=== PATIENT | female | born 1980 | race Caucasian/White ===

== ENCOUNTER 2018-02-08 16:02 | Observation (INO) | payer MEDICARE, OTHER ==
[~2018-02-08 16:02] MED LIST: LEVOTAB PO; LORA1CHW2 CHEW; MULT-120 PO; WALKER WHEELS/F1 MIS; [UNRECOGNIZED DRUG - CODE] EACH EYE
[2018-02-08 16:29] VITALS: BP 158/73; PULSE 128; RESP 24; TEMP 98.6; O2SAT 97
--- NOTE | 2018-02-08 17:19 | RADRPT ---
EXAM DATE/TIME: 02/08/2018 16:52 [place] COMPARISON: No previous studies available for comparison. INDICATIONS : Cough and fever. MEDICAL HISTORY : Cerebral palsy. SURGICAL HISTORY : None. ENCOUNTER: Initial ACUITY: 1 day PAIN SCORE: Non-responsive. LOCATION: Bilateral chest FINDINGS: Hyperinflation. Clear lungs. Heart size normal. Osseous structures are intact. CONCLUSION: Hyperinflation. Afshin Lawrence MD on February 08, 2018 at 17:17 Board Certified Radiologist. This report was verified electronically.
[2018-02-08 17:42] LABS: AUTOMATED NEUTROPHIL # 16.8 TH/MM3 (1.8-7.7); BASOPHIL % 0.1 % (0.0-2.0); HEMOGLOBIN 12.1 GM/DL (11.6-15.3); LYMPH % 6.8 % (9.0-44.0); LYMPHOCYTE # 1.3 TH/MM3 (1.0-4.8); MEAN CORPUSCULAR HEMOGLOBIN 29.8 PG (27.0-34.0); MEAN CORPUSCULAR HGB CONC 33.5 % (32.0-36.0); MONO % 5.9 % (0.0-8.0); MONOCYTE # 1.1 TH/MM3 (0-0.9); NEUT % 87.2 % (16.0-70.0); PLATELET COUNT 246 TH/MM3 (150-450); RED BLOOD COUNT 4.04 MIL/MM3 (4.00-5.30); RED CELL DISTRIBUTION WIDTH 13.6 % (11.6-17.2); WHITE BLOOD COUNT 19.2 TH/MM3 (4.0-11.0)
[2018-02-08 17:48] LABS: INTERNATIONAL NORMALIZED RATIO 1.1 RATIO; PROTHROMBIN TIME - PATIENT 11.4 SEC (9.8-11.6)
[2018-02-08 17:54] LABS: ALBUMIN 3.9 GM/DL (3.4-5.0); ALT (GPT) 32 U/L (10-53); AST (GOT) 30 U/L (15-37); BICARBONATE 25.2 MEQ/L (21.0-32.0); BLOOD UREA NITROGEN 16 MG/DL (7-18); CALCIUM 8.4 MG/DL (8.5-10.1); CHLORIDE 104 MEQ/L (98-107); CREATININE 0.77 MG/DL (0.50-1.00); GLOMERULAR FILTRATION RATE 83 ML/MIN (>89); GLUCOSE,RANDOM 109 MG/DL (74-106); SODIUM (NA) 137 MEQ/L (136-145)
[2018-02-08 17:56] LABS: ALKALINE PHOSPHATASE 84 U/L (45-117); TOTAL BILIRUBIN ADULT 0.6 MG/DL (0.2-1.0)
[2018-02-08] MEDS ORDERED: cefTRIAXone INJ 1,000 MG in SODIUM CHLORIDE 0.9% INJ 100 ML IV ONE (18:00)
[2018-02-08] MEDS ORDERED: SODIUM CHLOR 0.9% 1000 ML INJ 1,000 ML IV ONE (18:00)
--- NOTE | 2018-02-08 18:00 | PD ---
HPI Chief Complaint: Fever Time Seen by Provider: 17:43 Travel History International Travel<30 days: No Contact w/Intl Traveler<30days: No Traveled to known affect area: No History of Present Illness HPI 37-year-old female with history of cerebral palsy here with her father for evaluation of fever. Apparently the patient started with a fever about a week ago which seemed to resolve, then returned yesterday. She was checked for strep pharyngitis yesterday by her primary care physician and it was negative. That has been administering Tylenol and ibuprofen. Patient is not acting as her usual self and is refusing to eat or drink. She has not vomited. She is unable to provide history. PFSH Past Medical History Cerebral Palsy: Yes Diminished Hearing: No Musculoskeletal: Yes (cerebral palsey) Neurologic: Yes (NON-VERBAL) Integumentary: Yes (MRSA) Seizures: Yes ?: Not Menopausal: Yes Past Surgical History Eye Surgery: Yes (BILATERAL A CHILD) Other Surgery: Yes (MOLE REMOVED) Social History Alcohol Use: No Tobacco Use: No Substance Use: No Allergies-Medications (Allergen,Severity, Reaction): Coded Allergies: vancomycin (Unverified Allergy, Severe, EDEMA OF FACE AND EXTREMITY AND TONGUE, 07/14/17) Reported Meds & Prescriptions Reported Meds & Active Scripts Active Walker with Front Wheels (Device) 1 Mis Mis 1 Ea .ROUTE DIRECTED Levocetirizine 5 Mg Tab 5 Mg PO DAILY Bepreve Opth Drops (Bepotastine Opth Drops) 1.5% Drops 1 Drop EACH EYE BID Claritin (Loratadine) 5 Mg Chew 5 Mg CHEW DAILY Reported Multivitamin Women (Multiple Vitamins W/ Minerals) 1 Tab Tab 1 Tab PO DAILY Review of Systems Except as stated in HPI: all other systems reviewed are Neg Physical Exam Narrative GENERAL: Well-developed, thin, female SKIN: Focused skin assessment warm/dry. No petechiae. HEAD: Atraumatic. Normocephalic. EYES: Pupils equal and round. No scleral icterus. No injection or drainage. ENT: Mucous membranes pink and dry. Bilateral tympanic membranes and external auditory canals are normal. NECK: Trachea midline. No JVD. No nuchal rigidity. CARDIOVASCULAR: Regular rate and rhythm. No murmur appreciated. RESPIRATORY: No accessory muscle use. Clear to auscultation. Breath sounds equal bilaterally. GASTROINTESTINAL: Abdomen soft, non-tender, nondistended. MUSCULOSKELETAL: Upper and lower extremity contractures. No clubbing. No cyanosis. No edema. NEUROLOGICAL: Awake and alert. Data Data Last Documented VS Vital Signs Date Time Temp Pulse Resp B/P (MAP) Pulse Ox O2 Delivery O2 Flow Rate FiO2 02/08/18 17:46 22 Room Air 02/08/18 16:29 98.6 128 158/73 (101) 97 Orders Orders Complete Blood Count With Diff (02/08/18 16:32) Comprehensive Metabolic Panel (02/08/18 16:32) Prothrombin Time / Inr (Pt) (02/08/18 16:32) Act Partial Throm Time (Ptt) (02/08/18 16:32) Chest, Pa & Lat (02/08/18 ) Influenzae A/B Antigen (02/08/18 16:32) Urinalysis - C+S If Indicated (02/08/18 17:43) Cath For Specimen (02/08/18 17:43) Sodium Chlor 0.9% 1000 Ml Inj (Ns 1000 M (02/08/18 18:00) Ceftriaxone Inj (Rocephin Inj) (02/08/18 18:00) Blood Culture (02/08/18 18:01) Lactic Acid (02/08/18 18:01) Lorazepam Inj (Ativan Inj) (02/08/18 18:30) Labs Laboratory Tests Test 02/08/18 16:19 02/08/18 17:20 02/08/18 18:19 Urine Color YELLOW Urine Turbidity CLEAR Urine pH 6.0 Urine Specific [place] 1.037 Urine Protein 30 mg/dL Urine Glucose (UA) NEG mg/dL Urine Ketones 80 mg/dL Urine Occult Blood SMALL Urine Nitrite NEG Urine Bilirubin NEG Urine Urobilinogen 2.0 MG/DL Urine Leukocyte Esterase NEG Urine RBC 8 /hpf Urine WBC LESS THAN 1 /hpf Urine Hyaline Casts 3 /lpf Urine Granular Casts 3 /lpf Urine Mucus FEW /lpf Microscopic Urinalysis Comment CATH-CULT NOT IND White Blood Count 19.2 TH/MM3 Red Blood Count 4.04 MIL/MM3 Hemoglobin 12.1 GM/DL Hematocrit 36.0 % Mean Corpuscular Volume 89.0 FL Mean Corpuscular Hemoglobin 29.8 PG Mean Corpuscular Hemoglobin Concent 33.5 % Red Cell Distribution Width 13.6 % Platelet Count 246 TH/MM3 Mean Platelet Volume 9.0 FL Neutrophils (%) (Auto) 87.2 % Lymphocytes (%) (Auto) 6.8 % Monocytes (%) (Auto) 5.9 % Eosinophils (%) (Auto) 0.0 % Basophils (%) (Auto) 0.1 % Neutrophils # (Auto) 16.8 TH/MM3 Lymphocytes # (Auto) 1.3 TH/MM3 Monocytes # (Auto) 1.1 TH/MM3 Eosinophils # (Auto) 0.0 TH/MM3 Basophils # (Auto) 0.0 TH/MM3 CBC Comment DIFF FINAL Differential Comment Prothrombin Time 11.4 SEC Prothromb Time International Ratio 1.1 RATIO Activated Partial Thromboplast Time 26.5 SEC Blood Urea Nitrogen 16 MG/DL Creatinine 0.77 MG/DL Random Glucose 109 MG/DL Total Protein 8.0 GM/DL Albumin 3.9 GM/DL Calcium Level 8.4 MG/DL Alkaline Phosphatase 84 U/L Aspartate Amino Transf (AST/SGOT) 30 U/L Alanine Aminotransferase (ALT/SGPT) 32 U/L Total Bilirubin 0.6 MG/DL Sodium Level 137 MEQ/L Potassium Level 3.9 MEQ/L Chloride Level 104 MEQ/L Carbon Dioxide Level 25.2 MEQ/L Anion Gap 8 MEQ/L Estimat Glomerular Filtration Rate 83 ML/MIN Lactic Acid Level 1.1 mmol/L MDM Medical Decision Making Medical Screen Exam Complete: Yes Emergency Medical Condition: Yes Differential Diagnosis Febrile illness, sepsis, influenza, viral illness, pneumonia, UTI, acute intra- abdominal process Narrative Course Initial vital signs show heart rate 120, blood pressure 150/73, pulse ox 97% on room air, tympanic temp of 98.6F. The patient was given 1 g of IV Rocephin empirically. CBC: WBC 19.2, hemoglobin 12.1, hematocrit 36, platelets 246, neutrophils 87%. CMP is unremarkable. Lactic acid is 1.1. UA shows 80 ketones, not suggestive of UTI. Influenza is negative. Chest x-ray: Hyperinflation. Clear lungs. The patient likely has a viral URI. Case discussed with medical residents and they will admit the patient to their service under Dr. Troncoso for febrile illness with unknown source. Diagnosis Primary Impression: Fever, unknown origin Admitting Information Admitting Physician Requests: Guillremo Davies MD Feb 08, 2018 18:00
[2018-02-08] MEDS ORDERED: LORazepam 2 MG/ML VIAL IV PUSH ONE (18:30)
[2018-02-08 19:09] LABS: BLOOD, URINE SMALL (NEG); GLUCOSE,URINE NEG (NEG); HYALINE CAST, URINE 3 /lpf (RARE); KETONE, URINE 80 mg/dL (NEG); MUCUS URINE FEW /lpf (OCC); NITRITE,URINE NEG (NEG); URINE COLOR YELLOW (YELLW/STRAW); URINE LEUKOCYTE ESTERASE NEG (NEG)
[2018-02-08 19:13] LABS: BILIRUBIN, URINE NEG (NEG)
[2018-02-08] MEDS ORDERED: SODIUM CHLORIDE 0.9% FLUSH 10 ML FLUSH IV FLUSH PRN (19:30)
[2018-02-08] MEDS ORDERED: SENNOSIDES 8.6 MG TAB PO PRN (19:30)
[2018-02-08] MEDS ORDERED: ACETAMINOPHEN 325 MG TAB PO PRN (19:30)
[2018-02-08] MEDS ORDERED: NALOXONE HCL 0.4 MG/ML AMP IV PUSH PRN (19:30)
[2018-02-08] MEDS ORDERED: BISACODYL 10 MG SUPP RECTAL PRN (19:30)
[2018-02-08] MEDS ORDERED: MAGNESIUM HYDROXIDE SUSP 30 ML CUP PO PRN (19:30)
[2018-02-08] MEDS ORDERED: LACTULOSE SYRUP 20 GM/30 ML CUP PO PRN (19:30)
--- NOTE | 2018-02-08 19:39 | HHI.HP ---
[facility] Service [facility] Medicine Primary Care Physician Ciaran Rendon MD Admission Diagnosis Fever of unknown origin Diagnoses: International Travel<30 Days: No Contact w/Intl Traveler<30days: No Known Affected Area: No History of Present Illness Patient is a 37-year-old female with history significant for cerebral palsy and intellectual disability. Presented here today with her father that reports that he is the decision-maker. Patient is nonverbal. About 1 week ago patient was noticed to have a decrease in appetite and had a temperature of 100.0. The following day patient continued to have a decrease in appetite as well as decreased energy but with a fever to a high of 103. Was treated with Tylenol which improved the fever. She also developed a dry cough at that time. Symptoms continue to be present and was seen in the same day clinic at the [facility] and was diagnosed with viral illness. Rapid strep at that time was negative. Over the weekend patient's appetite had improved as well as her energy level but then yesterday her fever returned. This morning she then developed a recurrence of decreasing energy as well as fever. Cough has continued throughout this time. Father denies any other associated symptoms except for a more prominent urine smell. Sick contacts include father who had a URI but has improved. Patient is otherwise doing well. Review of Systems ROS Limitations: Clinical Condition (History obtained from father as patient is nonverbal) Constitutional: COMPLAINS OF: Fatigue, Fever, Change in appetite Endocrine: DENIES: Polydipsia, Polyuria Ears, nose, mouth, throat: DENIES: Running Nose Respiratory: COMPLAINS OF: Cough, DENIES: Sputum production Gastrointestinal: DENIES: Abdominal pain, Diarrhea, Vomiting Genitourinary: DENIES: Hematuria, Dysuria Musculoskeletal: DENIES: Joint pain Integumentary: DENIES: Rash Past Family Social History Past Medical History Cerebral palsy Intellectual disability Past Surgical History Bilateral eye surgery Reported Medications None Allergies: Coded Allergies: vancomycin (Verified Allergy, Severe, EDEMA OF FACE AND EXTREMITY AND TONGUE, 02/08/18) Family History Mother: of unknown cancer. Estranged from family Father: Healthy Social History Lives with father and has 2 caretakers No alcohol, tobacco, illicit drug use Physical Exam Vital Signs Vital Signs Date Time Temp Pulse Resp B/P (MAP) Pulse Ox O2 Delivery O2 Flow Rate FiO2 02/08/18 17:46 22 Room Air 02/08/18 16:29 98.6 128 24 158/73 (101 97 Physical Exam GENERAL: This is a well-nourished, well-developed patient, in no apparent distress. SKIN: No rashes, ecchymoses or lesions. Cool and dry. HEAD: Atraumatic. Normocephalic. EYES: Pupils equal round and reactive. Extraocular motions intact. No scleral icterus. No injection or drainage. ENT: Nose without bleeding, purulent drainage. TM normal bilaterally. Throat without erythema, tonsillar hypertrophy or exudate. Airway patent. Very poor dentition NECK: No JVD or lymphadenopathy. Supple, nontender, no meningeal signs. CARDIOVASCULAR: Regular rate and rhythm without murmurs, gallops, or rubs. RESPIRATORY: Clear to auscultation. Breath sounds equal bilaterally. No wheezes , rales, or rhonchi. GASTROINTESTINAL: Abdomen soft, non-tender, nondistended. No hepato-splenomegaly , or palpable masses. No guarding. MUSCULOSKELETAL: Extremities without clubbing, cyanosis, or edema. No joint tenderness, effusion, or edema noted. No calf tenderness. NEUROLOGICAL: Awake and alert. Motor and sensory grossly within normal limits. Non verbal Laboratory Laboratory Tests Test 02/08/18 16:19 02/08/18 17:20 02/08/18 18:19 Urine Color YELLOW Urine Turbidity CLEAR Urine pH 6.0 Urine Specific [place] 1.037 Urine Protein 30 Urine Glucose (UA) NEG Urine Ketones 80 Urine Occult Blood SMALL Urine Nitrite NEG Urine Bilirubin NEG Urine Urobilinogen 2.0 Urine Leukocyte Esterase NEG Urine RBC 8 Urine WBC LESS THAN 1 Urine Hyaline Casts 3 Urine Granular Casts 3 Urine Mucus FEW Microscopic Urinalysis Comment CATH-CULT NOT IND White Blood Count 19.2 Red Blood Count 4.04 Hemoglobin 12.1 Hematocrit 36.0 Mean Corpuscular Volume 89.0 Mean Corpuscular Hemoglobin 29.8 Mean Corpuscular Hemoglobin Concent 33.5 Red Cell Distribution Width 13.6 Platelet Count 246 Mean Platelet Volume 9.0 Neutrophils (%) (Auto) 87.2 Lymphocytes (%) (Auto) 6.8 Monocytes (%) (Auto) 5.9 Eosinophils (%) (Auto) 0.0 Basophils (%) (Auto) 0.1 Neutrophils # (Auto) 16.8 Lymphocytes # (Auto) 1.3 Monocytes # (Auto) 1.1 Eosinophils # (Auto) 0.0 Basophils # (Auto) 0.0 CBC Comment DIFF FINAL Differential Comment Prothrombin Time 11.4 Prothromb Time International Ratio 1.1 Activated Partial Thromboplast Time 26.5 Blood Urea Nitrogen 16 Creatinine 0.77 Random Glucose 109 Total Protein 8.0 Albumin 3.9 Calcium Level 8.4 Alkaline Phosphatase 84 Aspartate Amino Transf (AST/SGOT) 30 Alanine Aminotransferase (ALT/SGPT) 32 Total Bilirubin 0.6 Sodium Level 137 Potassium Level 3.9 Chloride Level 104 Carbon Dioxide Level 25.2 Anion Gap 8 Estimat Glomerular Filtration Rate 83 Lactic Acid Level 1.1 Date/Time Source Procedure Growth Status 02/08/18 18:30 Blood Peripheral Aerobic Blood Culture Pending Received 02/08/18 18:30 Blood Peripheral Anaerobic Blood Culture Pending Received 02/08/18 17:20 Nasal Aspirate Influenza Types A,B Antigen (ALEJANDRO) - Final NEGATIVE FOR FLU A AND B ANTIGEN.... Complete Result Diagram: 02/08/18 1720 02/08/18 1720 Imaging Last Impressions Chest X-Ray 02/08/18 0000 Signed Impressions: Service Date/Time: Thursday, February 08, 2018 16:52 - CONCLUSION: Hyperinflation. Afshin Lawrence MD [place] VTE Risk Assessment Caprini VTE Risk Assessment: No/Low Risk (score <= 1) Caprini Risk Assessment Model Point Value = 1 Point Value = 2 Point Value = 3 Point Value = 5 Age 41-60 Minor surgery BMI > 25 kg/m2 Swollen legs Varicose veins or History of unexplained or recurrent spontaneous Oral contraceptives or hormone replacement Sepsis (< 1 month) Serious lung disease, including pneumonia (< 1 month) Abnormal pulmonary function Acute myocardial infarction Congestive heart failure (< 1 month) History of inflammatory bowel disease Medical patient at bed rest Age 61-74 Arthroscopic surgery Major open surgery (> 45 min) Laparoscopic surgery (> 45 min) Malignancy Confined to bed (> 72 hours) Immobilizing plaster cast Central venous access Age >= 75 History of VTE Family history of VTE Factor V Leiden Prothrombin [id number] Lupus anticoagulant Anticardiolipin antibodies Elevated serum homocysteine Heparin-induced thrombocytopenia Other congenital or acquired thrombophilia Stroke (< 1 month) Elective arthroplasty Hip, pelvis, or leg fracture Acute spinal cord injury (< 1 month) Prophylaxis Regimen Total Risk Factor Score Risk Level Prophylaxis Regimen 0-1 Low Early ambulation 2 Moderate Order ONE of the following: *Sequential Compression Device (SCD) *Heparin 5000 units SQ BID 3-4 Higher Order ONE of the following medications: *Heparin 5000 units SQ TID *Enoxaparin/Lovenox 40 mg SQ daily (WT < 150 kg, CrCl > 30 mL/min) *Enoxaparin/Lovenox 30 mg SQ daily (WT < 150 kg, CrCl > 10-29 mL/min) *Enoxaparin/Lovenox 30 mg SQ BID (WT < 150 kg, CrCl > 30 mL/min) AND/OR *Sequential Compression Device (SCD) 5 or more Highest Order ONE of the following medications: *Heparin 5000 units SQ TID (Preferred with Epidurals) *Enoxaparin/Lovenox 40 mg SQ daily (WT < 150 kg, CrCl > 30 mL/min) *Enoxaparin/Lovenox 30 mg SQ daily (WT < 150 kg, CrCl > 10-29 mL/min) *Enoxaparin/Lovenox 30 mg SQ BID (WT < 150 kg, CrCl > 30 mL/min) AND *Sequential Compression Device (SCD) Assessment and Plan Assessment and Plan 37yo female with PMH significant for cerebral palsy, intellectual disability. Patient is nonverbal and father reports that he has medical decision-making. Admitted for leukocytosis and febrile illness. Currently afebrile Code Status DNR per father after thorough discussion. -We will attempt to see if there is paperwork that needs to be filled to support this Problem List: (1) Fever, unknown origin ICD Codes: R50.9 - Fever, unspecified Status: Acute Plan: Patient with likely viral illness 1 week that resolved but then recurred 2 days ago. Due to patient's inability to verbalize and high risk for superimposed bacterial infection, will observe in the hospital due to patient's risk factors. Even with these factors, symptoms are still suggestive of viral illness. CXR unremarkable. -Leukocytosis without a left shift -CRP elevated, lactic acid unremarkable -Respiratory panel ordered -Pro calcitonin ordered to help differentiate between viral versus bacterial illness -UA unremarkable except for ketones which correlates with decreased appetite -Continue with Rocephin for empiric coverage until reevaluated (02/08- (2) Congenital cerebral palsy ICD Codes: G80.9 - Congenital cerebral palsy Status: Chronic Plan: Limited communication due to cerebral palsy with associated intellectual disability. Father provided a history and is senior net software engineer of patient. (3) Nutrition, metabolism, and development symptoms ICD Codes: R63.8 - Other symptoms and signs concerning food and fluid intake Plan: Diet: Regular Fluids: D5 half-normal saline due to history of poor p.o. intake Electrolytes: Unremarkable DVT prophylaxis: Lovenox GI prophylaxis: Not indicated Brit Doll MD, R3 Feb 08, 2018 19:39
[2018-02-08 19:48] LABS: C-REACTIVE PROTEIN 8.72 MG/DL (0.00-0.30)
[2018-02-08] MEDS ORDERED: DEXT 5%-NACL 0.45% 1000 ML INJ 1,000 ML IV SCH (20:00)
[2018-02-08] MEDS ORDERED: DOCUSATE SODIUM 50 MG/SENNA 8.6 MG TAB PO SCH (21:00)
[2018-02-08] MEDS ORDERED: ENOXAPARIN SODIUM 40 MG/0.4 ML SYRINGE SQ SCH (21:00)
[2018-02-08] MEDS ORDERED: SODIUM CHLORIDE 0.9% FLUSH 10 ML FLUSH IV FLUSH SCH (21:00)
[2018-02-08 21:26] VITALS: BP 140/72; PULSE 148; RESP 20; O2SAT 98
--- NOTE | 2018-02-08 23:06 | PD.AMA ---
Against Medical Advice Note Discharge Disposition: Against Medical Advice Pt Condition on Discharge: Stable AMA Statement Patient Brit Schaefer has decided to leave the hospital against medical advice. The patient has been informed that she may return for care at any time, and patient has been advised to follow up with pcp. Mike Hanson MD, R1 Feb 08, 2018 23:06
[2018-02-09] MEDS ORDERED: cefTRIAXone INJ 1,000 MG in SODIUM CHLORIDE 0.9% INJ 100 ML IV SCH (17:00)
== END 2018-02-08 23:02 | disposition left against medical advice (07) ==
LOC: NEPD 16:02 → NEDA 19:20
PROVIDERS: ADMIT Family Medicine; ATTEND Family Medicine
DX: R50.9 Fever, unspecified (principal); R05 Cough; G80.9 Cerebral palsy, unspecified; E83.51 Hypocalcemia; R06.02 Shortness of breath; F79 Unspecified intellectual disabilities; Z66 Do not resuscitate
CPT/HCPCS: 71046; 80053; 81001; 83605; 84145; 85025; 85610; 85730; 86140; 87040; 87804; 96365; 96366; 96372; 96375; 99285; G0378; J0696; J1650; J2060; J7030; P9612